=== PATIENT | female | born 1960 | race Caucasian/White ===

== ENCOUNTER 2016-07-13 22:47 | Emergency (ER) | payer OTHER | END 2016-07-14 02:39 | disposition home or self-care (01) | LOC: FER 22:47 | DX: S67.02XA Crushing injury of left thumb, initial encounter (principal); S62.512A Displaced fracture of proximal phalanx of left thumb, initial encounter for closed fracture; F43.10 Post-traumatic stress disorder, unspecified; F41.9 Anxiety disorder, unspecified; F32.9 Major depressive disorder, single episode, unspecified; F17.210 Nicotine dependence, cigarettes, uncomplicated; Z79.899 Other long term (current) drug therapy; W23.1XXA Caught, crushed, jammed, or pinched between stationary objects, initial encounter; Y92.009 Unspecified place in unspecified non-institutional (private) residence as the place of occurrence of the external cause | CPT/HCPCS: 73140 ==

== ENCOUNTER 2016-10-26 14:55 | Emergency (ER) | payer OTHER | END 2016-10-26 16:22 | disposition left against medical advice (07) | LOC: FER 14:55 | DX: K08.409 Partial loss of teeth, unspecified cause, unspecified class (principal); Z53.21 Procedure and treatment not carried out due to patient leaving prior to being seen by health care provider ==

== ENCOUNTER 2020-11-23 11:03 | Emergency (ER) | payer MEDICARE, OTHER ==
[~2020-11-23 11:03] MED LIST: ANORO ELLIPTA1 EACH INH; ARICEPT 5MG TABL5 MG PO; ASPIRIN325 M1 PO; ATARAX25 MG PO; AZITHROMYCIN 2250 MG PO; AZITHROMYCIN250 MG PO; CEFDINIR300 MG PO; CLONAZEPAM 1MG T1 MG PO; DEPAKOTE250 MG PO; DUONEB 2.5-0.5M1 AMP INH; HYDROXYZINE HCL50 MG PO; KLONOPIN0.5 MG PO; LIPITOR 10MG TA10 MG PO; MINIPRESS1 MG PO; MOBIC7.5 MG PO; NORCO 5-325 TA1 EACH PO; PAXIL30 MG PO; PERCOCET 5-3251 EACH PO; PREDNISONE 20MG20 MG PO; QUETIAPINE FUM300 MG PO; SEROQUEL 100MG100 MG PO; TOFRANIL25 MG PO; TRELEGY ELLIPT1 EACH INH; VENTOLIN HFA IN18 GM INH; WELLBUTRIN XL150 MG PO
[2020-11-23 12:01] LABS: BASOPHIL 0.8 % (0-2); EOSINOPHIL 0.7 % (0-5); HCT 48.6 % (37.0-47.0); HGB 15.8 g/dl (12.5-16.0); LYMPHOCYTE 11.5 % (15-48); MCH 27.9 pg (25.0-31.0); MCHC 32.5 g/dL (32.0-36.0); MCV 85.9 fL (78.0-100.0); MONOCYTE 4.9 % (0-12); MPV 9.6 fL (6.0-9.5); NEUTROPHIL 81.6 % (41-80); NRBC 0; PLT 435 K/uL (150-400); RBC 5.66 M/uL (4.20-5.40); RDW 13.4 % (11.5-14.0); WBC 12.4 K/uL (4.0-10.5)
[2020-11-23 12:22] LABS: ALBUMIN 3.7 g/dL (3.4-5.0); BILIRUBIN - TOTAL 0.3 mg/dL (0.2-1.0); BUN/CREAT RATIO (CALC) 10.4 RATIO; CREATININE 0.67 mg/dL (0.51-0.95); GLOBULIN (CALCULATION) 3.3 g/dL
[2020-11-23 13:26] LABS: LACTIC ACID 1.3 mmol/L (0.4-1.9)
[2020-11-23 14:27] LABS: BILIRUBIN NEGATIVE (NEGATIVE); BLOOD NEGATIVE Ery/uL (NEGATIVE); CLARITY CLEAR (CLEAR); COLOR YELLOW (YELLOW); GLUCOSE (U) NORMAL (NORMAL); LEUKOCYTES NEGATIVE Leu/uL (NEGATIVE); NITRITE NEGATIVE (NEGATIVE); PROTEIN NEGATIVE (NEGATIVE); UROBILINOGEN 0.2 mg/dL (0.2-1.0)
[2020-11-23 14:28] LABS: CORONAVIRUS 2019 SARS-COV-2 NEGATIVE (NEGATIVE); INFLUENZA A NAA NEGATIVE (NEGATIVE)
[2020-11-23 15:14] LABS: LDH 254 U/L (81-234)
[2020-11-23] MEDS ORDERED: PREDNISONE20 MG PO (17:04)
[2020-11-23] MEDS ORDERED: ZOFRAN4 M1 PO (17:04)
[2020-11-23] MEDS ORDERED: VIBRAMYCIN100 MG PO (17:04)
== END 2020-11-23 17:25 | disposition home or self-care (01) ==
LOC: FER 11:03
PROVIDERS: Emergency Medicine; Nurse Practitioner Family
DX: J43.9 Emphysema, unspecified (principal); R10.84 Generalized abdominal pain; R11.2 Nausea with vomiting, unspecified; F17.210 Nicotine dependence, cigarettes, uncomplicated; Z88.2 Allergy status to sulfonamides; Z20.822 Contact with and (suspected) exposure to COVID-19
CPT/HCPCS: 36415; 71275; 80053; 81003; 82150; 82728; 83605; 83615; 83690; 84145; 84484; 85025; 87040; 93005; 94640; J1885; J2405; J2930; J7030; Q9967; U0002

== ENCOUNTER 2021-08-09 07:23 | Day surgery (SDCO) | payer MEDICARE, OTHER ==
[~2021-08-09] VITALS: Ht 157.5 cm; Wt 54.1 kg
[~2021-08-09 07:23] MED LIST changes: +PREDNISONE20 MG PO; +VIBRAMYCIN100 MG PO; +ZOFRAN4 M1 PO
[2021-08-09 08:24] LABS: BASOPHIL 0.9 % (0-2); EOSINOPHIL 0.6 % (0-5); HCT 48.1 % (37.0-47.0); HGB 15.7 g/dl (12.5-16.0); LYMPHOCYTE 10.3 % (15-48); MCHC 32.6 g/dL (32.0-36.0); MCV 85.7 fL (78.0-100.0); MONOCYTE 4.3 % (0-12); MPV 11.4 fL (6.0-9.5); NEUTROPHIL 83.6 % (41-80); NRBC 0; PLT 352 K/uL (150-400); RBC 5.61 M/uL (4.20-5.40); RDW 14.2 % (11.5-14.0); WBC 11.7 K/uL (4.0-10.5)
[2021-08-09 08:26] LABS: BILIRUBIN - TOTAL 0.3 mg/dL (0.2-1.0); BUN/CREAT RATIO (CALC) 17.5 RATIO; CREATININE 0.57 mg/dL (0.51-0.95); GLOBULIN (CALCULATION) 2.9 g/dL; POTASSIUM 3.8 mmol/L (3.5-5.1); TOTAL PROTEIN 6.9 g/dL (6.4-8.2)
[2021-08-09 08:35] LABS: BILIRUBIN NEGATIVE (NEGATIVE); BLOOD NEGATIVE Ery/uL (NEGATIVE); CLARITY CLEAR (CLEAR); COLOR YELLOW (YELLOW); GLUCOSE (U) NORMAL (NORMAL); LEUKOCYTES NEGATIVE Leu/uL (NEGATIVE); NITRITE NEGATIVE (NEGATIVE); PROTEIN NEGATIVE (NEGATIVE); UROBILINOGEN 0.2 mg/dL (0.2-1.0); pH 7.5 (5.0-9.0)
[2021-08-09 08:37] LABS: AMPHETAMINES NEGATIVE (NEGATIVE); BARBITURATES NEGATIVE (NEGATIVE); ECSTASY (MDMA) NEGATIVE (NEGATIVE); MARIJUANA (THC) POSITIVE (NEGATIVE); METHADONE NEGATIVE (NEGATIVE); OPIATES NEGATIVE (NEGATIVE); OXYCODONE NEGATIVE (NEGATIVE)
--- NOTE | 2021-08-09 15:45 | NUR ---
RECEIVED FROM ER VIA STRETCHER. WALKED TO BED AND BATHROROM ORINTED TO ROOM INSTRUCTED TO CALL FOR ASSISTANCE NO NAUSEA VOMITING OR DIARHEA AT THIS TIME
[2021-08-09] MEDS ORDERED: DITROPAN5 MG PO (16:11)
[2021-08-09] MEDS ORDERED: NITROGLYCERIN0.4 MG SL (16:13)
[2021-08-10 06:05] LABS: HCT 41.3 % (37.0-47.0); HGB 13.4 g/dl (12.5-16.0); MCH 28.2 pg (25.0-31.0); MCHC 32.4 g/dL (32.0-36.0); MCV 86.8 fL (78.0-100.0); MPV 10.8 fL (6.0-9.5); RBC 4.76 M/uL (4.20-5.40); RDW 14.2 % (11.5-14.0); WBC 8.5 K/uL (4.0-10.5)
[2021-08-10 07:03] LABS: BUN/CREAT RATIO (CALC) 9.5 RATIO; CREATININE 0.63 mg/dL (0.51-0.95); POTASSIUM 3.5 mmol/L (3.5-5.1)
[2021-08-10] MEDS ORDERED: FLORANEX TABLE1 EACH PO (09:29)
[2021-08-10] MEDS ORDERED: LOPRESSOR25 MG PO (09:29)
[2021-08-10] MEDS ORDERED: METRONIDAZOLE500 MG PO (09:29)
== END 2021-08-10 11:50 | disposition home or self-care (01) ==
LOC: FER 07:23 → FTCU 14:03
PROVIDERS: Emergency Medicine; ADMIT Family Medicine
DX: R11.2 Nausea with vomiting, unspecified (principal); K52.9 Noninfective gastroenteritis and colitis, unspecified; R07.89 Other chest pain; R73.9 Hyperglycemia, unspecified; I95.9 Hypotension, unspecified; E86.0 Dehydration; K21.00 Gastro-esophageal reflux disease with esophagitis, without bleeding; J44.9 Chronic obstructive pulmonary disease, unspecified; I10 Essential (primary) hypertension; F31.9 Bipolar disorder, unspecified; E78.5 Hyperlipidemia, unspecified; F17.210 Nicotine dependence, cigarettes, uncomplicated; Z87.19 Personal history of other diseases of the digestive system; Z88.2 Allergy status to sulfonamides; Z88.0 Allergy status to penicillin
CPT/HCPCS: 36415; 80048; 80053; 80305; 81003; 83036; 83690; 84484; 85025; 93005; G0378; J0692; J1170; J1650; J2405; J7030

== ENCOUNTER 2021-10-27 19:50 | Emergency (ER) | payer MEDICARE, OTHER ==
[~2021-10-27 19:50] MED LIST changes: +DITROPAN5 MG PO; +FLORANEX TABLE1 EACH PO; +LOPRESSOR25 MG PO; +METRONIDAZOLE500 MG PO; +NITROGLYCERIN0.4 MG SL
== END 2021-10-27 21:28 | disposition home or self-care (01) ==
LOC: FER 19:50
DX: S90.31XA Contusion of right foot, initial encounter (principal); F03.90 Unspecified dementia, unspecified severity, without behavioral disturbance, psychotic disturbance, mood disturbance, and anxiety; Z28.310 Unvaccinated for COVID-19; Z88.0 Allergy status to penicillin; Z88.2 Allergy status to sulfonamides; Z91.09 Other allergy status, other than to drugs and biological substances
CPT/HCPCS: 73630